=== PATIENT | female | born 1955 | race Caucasian/White ===

== ENCOUNTER → 2017-04-21 | Outpatient (CLI) | payer BC ==
[~2017-04-21] MED LIST: ACET-1311 PO; ALBUAER2 INH; FLUT220A INH
== END | disposition home or self-care (01) ==
LOC: C.PAPS 16:02
PROVIDERS: ATTEND Physician Assistant Medical
DX: C54.8 Malignant neoplasm of overlapping sites of corpus uteri (principal)

== ENCOUNTER → 2017-04-21 | Outpatient (CLI) | payer BC ==
[2016-04-17 13:12] VITALS: BP 113/74; PULSE 105
[2017-04-21 14:19] VITALS: BP 120/77; PULSE 100; TEMP 37.1; O2SAT 95
--- NOTE | 2017-04-21 15:34 | Radiation Oncology Follow-Up ---
Radiation Oncology Follow-Up Date of Visit Apr 21, 2017. 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 She denies any vaginal discharge or bleeding. There is been no change in urination or bowel habits. She continues regular follow-up with medical oncology. Due to distance of travel she has no longer following with gynecology in [place]. She is not currently sexually active. She periodically uses the vaginal dilator. Allergies Coded Allergies: Cat Dander (Unverified Allergy, Unknown, TRIGGERS ASTHMA, 03/07/16) NO KNOWN DRUG ALLERGIES (Unverified Allergy, Unknown, NONE, 03/07/16) Home Medications Scheduled Albuterol (Ventolin), 2 PUFFS INH EVERY 4 HOURS PRN Fluticasone Propionate Hfa (Flovent Hfa 220MCG Inhaler), 2 PUFFS INH prn Scheduled PRN Acetaminophen (Tylenol), 650 MG PO Q6 PRN for Pain Review of Systems Gastrointestinal: Symptoms: WNL GI Comments: No fiber supplements; Oral: Symptoms: No Problems Respiratory: Symptoms: WNL Urinary: Symptoms: WNL Skin: Symptoms: No Problems Physical Exam Vital Signs Date Time Temp Pulse Resp B/P (MAP) Pulse Ox O2 Delivery O2 Flow Rate FiO2 04/21/17 14:19 37.1 100 20 120/77 95 Pain: Side: Left Pain Location: hip Patient Pain Scale: 0 - 10 Initial Pain Intensity: 4.0 Fatigue: None General Appearance: no apparent distress Eyes: normal inspection, EOMI ENT: normal ENT inspection, hearing grossly normal Neck: no adenopathy, thyroid normal Respiratory/Chest: lungs clear, no respiratory distress, no accessory muscle use Cardiovascular: regular rate, rhythm, no gallop, no murmur Abdomen: non tender, soft Genitourinary - Female: Normal external genitalia. There is dryness of the vagina. She has foreshortening of the vagina which is mild. There is telangiectasia at the apex. Pap smear was taken. There are no visible or palpable lesions in the vagina. Bimanual examination reveals no palpable lesions and no tenderness on examination. Anal / Rectum: Normal sphincter tone. Mild internal hemorrhoids. No rectal masses no rectal bleeding. Extremities: no pedal edema Neurologic/Psychiatric: no motor/sensory deficits, alert, normal mood/affect Skin: warm/dry Assessment & Plan Plan: Past there was obtained and she'll be notified as to results. Continue follow-up with her primary care physician and medical oncology. We discussed using the vaginal dilator at least once per week for 10 minutes. Since she is not sexually active. We also discussed the vaginal dryness. If she becomes sexually active she may need to use a lubricant. We asked her to return to our office in 1 year. She may call if she has any questions or concerns in the interim. Total Time In Follow-Up I spent 25 minutes speaking to the patient and performing examination. I spent 15 minutes reviewing information and completing this note. Copy To Sha Omalley M.D.; Zafar Paz M.D.
== END | disposition home or self-care (01) ==
LOC: C.ONC 14:06
PROVIDERS: ATTEND Physician Assistant Medical
DX: Z08 Encounter for follow-up examination after completed treatment for malignant neoplasm (principal); Z92.3 Personal history of irradiation; Z85.42 Personal history of malignant neoplasm of other parts of uterus